=== PATIENT | female | born 1990 | race Caucasian/White ===

== ENCOUNTER 2018-04-21 13:48 | Emergency (ER) | payer OTHER ==
[2018-04-21 13:53] VITALS: TEMP 97.9
[2018-04-21] MEDS ORDERED: KETOROLAC 30 MG/ML 1 ML VIAL IM STA (14:31)
--- NOTE | 2018-04-21 14:52 | ED ---
General Adult HPI - General Chief complaint: Extremity Problem,Nontraumatic Stated complaint: Lt leg pain Time Seen by Provider: 04/21/18 14:09 Source: patient, RN notes reviewed Mode of arrival: wheelchair Limitations: no limitations - History of Present Illness Initial comments: 28-year-old female presents to the emergency department for a chief complaint of left leg pain 2 days. Patient states she was at work 2 days ago when she bent down to pick something up. Patient states she felt a sudden pain and a pop on the posterior lateral aspect of the left knee. Patient states it has been painful since that time. Patient states she presented to [facility] and had an ultrasound done which was negative for DVT. She states she was given a knee immobilizer but is still having pain. She states she was not given follow-up to orthopedics. Patient has not taken Motrin or Tylenol. Patient states she would like an x-ray at this time. Patient has no other complaints at this time including shortness of breath, chest pain, abdominal pain, nausea or vomiting, headache, or visual changes. - Related Data Home Medications Medication Instructions Recorded Confirmed Cyclobenzaprine [Flexeril] 10 mg PO Q8H PRN 04/21/18 04/21/18 Ibuprofen [Motrin] 600 mg PO Q8HR PRN 04/21/18 04/21/18 Allergies Allergy/AdvReac Type Severity Reaction Status Date / Time amoxicillin Allergy Rash/Hives Verified 04/21/18 14:16 Review of Systems ROS Statement: Those systems with pertinent positive or pertinent negative responses have been documented in the HPI. ROS Other: All systems not noted in ROS Statement are negative. Past Medical History Past Medical History: No Reported History History of Any Multi-Drug Resistant Organisms: MRSA Date of last positivie culture/infection: 10/2014 MDRO Source:: right arm Past Surgical History: Section, Cholecystectomy Past Psychological History: No Psychological Hx Reported Smoking Status: Current every day smoker Past Alcohol Use History: Occasional Past Drug Use History: None Reported General Exam Limitations: no limitations General appearance: alert, in no apparent distress Head exam: Present: atraumatic, normocephalic, normal inspection Eye exam: Present: normal appearance, PERRL, EOMI. Absent: scleral icterus, conjunctival injection, periorbital swelling ENT exam: Present: normal exam, mucous membranes moist Neck exam: Present: normal inspection, full ROM Respiratory exam: Present: normal lung sounds bilaterally. Absent: respiratory distress, wheezes, rales, rhonchi, stridor Cardiovascular Exam: Present: regular rate, normal rhythm, normal heart sounds. Absent: systolic murmur, diastolic murmur, rubs, gallop, clicks GI/Abdominal exam: Present: soft, normal bowel sounds. Absent: distended, tenderness, guarding, rebound, rigid Extremities exam: Present: tenderness (Tenderness noted to the posterior aspect of the left knee and lateral aspect of the left proximal lower leg. No tenderness to the anterior knee.), normal capillary refill (Capillary refill less than 2 seconds and DP pulse 2+ in the left lower extremity.), other ( Sensation intact in the left lower extremity.). Absent: full ROM (Patient has 30 flexion of the left knee with extension to neutral position.), joint swelling (Patient does not have any significant edema or erythema noted of the left knee joint. No evidence of infection.) Neurological exam: Present: alert, oriented X3, CN II-XII intact Psychiatric exam: Present: normal affect, normal mood Skin exam: Present: warm, dry, intact, normal color. Absent: rash Course Vital Signs 04/21/18 13:50 Temperature 97.9 F Pulse Rate 77 Respiratory 18 Rate Blood Pressure 161/91 O2 Sat by Pulse 99 Oximetry Medical Decision Making - Medical Decision Making Patient had a negative ultrasound 2 days ago at [facility]. X- ray of the left knee shows a possible joint effusion with a suprapatellar increased density. No fracture or dislocation. Patient may have a ligamentous injury due to popping sensation. Again, no erythema, edema or evidence of infection. No fevers. Patient will continue to wear knee immobilizer and will be given a prescription for crutches. She will be given a referral to orthopedics. She will follow-up with them in 1-2 days. She will return to the emergency Department if she has any worsening symptoms. Disposition Clinical Impression: Knee pain, left Disposition: HOME SELF-CARE Condition: Good Instructions (If sedation given, give patient instructions): Knee Pain (ED) Additional Instructions: Please take Motrin and Tylenol for pain. Please rest ice and elevate the knee. Please use knee immobilizer and crutches. Follow-up with orthopedics in one to 2 days. Return here if you have any worsening symptoms. Is patient prescribed a controlled substance at d/c from ED?: No Referrals: Xenia Mancilla MD [Primary Care Provider] - 1-2 days Odin Dunn DO [Doctor of Osteopathic Medicine] - 1-2 days Time of Disposition: 15:56
--- NOTE | 2018-04-21 15:19 | XR ---
Left knee HISTORY: Left knee pain 2 views of the left knee Suprapatellar increased density may be indicative of joint effusion. Alignment, bone mineralization, joint spaces are maintained. No fracture or dislocation. IMPRESSION: Possible joint effusion.
[2018-04-21 16:33] VITALS: BP 142/102; PULSE 85; RESP 15
== END 2018-04-21 16:32 | disposition home or self-care (01) ==
LOC: EC 13:48
DX: M25.562 Pain in left knee (principal); F17.200 Nicotine dependence, unspecified, uncomplicated; Z86.14 Personal history of Methicillin resistant Staphylococcus aureus infection; Z88.0 Allergy status to penicillin
CPT/HCPCS: 73560; 99284; 96372; J1885